=== PATIENT | male | born 1945 | race Caucasian/White ===

== ENCOUNTER 2022-06-01 17:07 | Emergency (ER) | payer OTHER, MEDICARE ==
--- NOTE | 2022-06-01 17:48 | XRAY ---
Indication: Acute mental status change. Multiple contiguous axial images obtained through the head without contrast. Comparison: None Age-appropriate global atrophy and mild periventricular degenerative micro-ischemia bilaterally. No acute intracranial hemorrhage, abnormal extra-axial fluid collection, or mass effect. Fourth ventricle is midline without hydrocephalus. Bony calvarium intact. Visualized paranasal sinuses and mastoid air cells are clear. Impression: Nonacute senile brain.
[2022-06-01 17:54] LABS: Absolute Neutrophil Ct (ANC) 5.97 x10^3/uL (1.4-6.9); BASOPHIL % 0.4 % (0.0-0.4); Basophil (Absolute #) 0.03 x10^3/uL (0-0.4); Eosinophil % 0.3 % (0.00-5.0); Eosinophil (Absolute #) 0.02 x10^3/uL (0-0.5); Hematocrit 43.7 % (42-50); IMMATURE GRAN # 0.02 x10^3u/L (0.00-0.03); IMMATURE GRAN % 0.3 % (0.00-0.4); Lymphocyte (Absolute #) 0.84 x10^3/uL (1.0-4.6); Lymphocytes % 11.5 % (24.0-44.0); Mean Cell Volume 94.6 fL (78-100); Mean Corpuscular Hemoglobin 30.3 pg (26-32); Mean Platelet Volume 9.8 fL (7.5-11.0); Monocyte (Absolute #) 0.42 x10^3/uL (0.0-1.3); Monocytes % 5.8 % (0.0-12.0); Neutrophil % 81.7 % (36.0-66.0); Platelet Count 191 x10^3/uL (150-450); Red Blood Count 4.62 x10^6/uL (4.1-5.6); Red Cell Distribution Width 13.2 % (11.5-14.0); White Blood Count 7.3 x10^3/uL (4.0-10.5)
[2022-06-01 18:11] LABS: ALKALINE PHOSPHATASE 66 U/L (38-126); ANION GAP 9.9 MEQ/L (5-15); BLOOD UREA NITROGEN 27 mg/dL (9-20); CHLORIDE 100 mmol/L (98-107); Calcium 8.9 mg/dL (8.4-10.2); Carbon Dioxide 26 mmol/L (22-30); Creatinine 1 1.01 mg/dL (0.66-1.25); EST GLOMERULAR FILTRATION RATE > 60.0 ML/MIN; Glucose 196 mg/dL (74-106); Potassium 3.5 mmol/L (3.5-5.1); SGOT/AST 23 U/L (17-59); SGPT/ALT 20 U/L (0-50); SODIUM 133 mmol/L (137-145); Total Protein 7.3 g/dL (6.3-8.2)
--- NOTE | 2022-06-01 18:49 | ERPHSYRPT ---
- History of Present Illness Time Seen by Provider: 06/01/22 17:50 Source: patient Exam Limitations: no limitations Patient Subjective Stated Complaint: C/O "spells" today. States, "I just keep feeling like I'm going to pass out." Patient denies any pain. He indicates that he had a "spell" while driving to [place] today. Patient would get hot and sweaty just prior to the "spells." Friend at bedside states patient had over 5 of these "spells" on the way home from [place] just prior to coming to the ER. Triage Nursing Assessment: Patient ambulated back to ER. No SOB. Patient alert and times but is repeating himself often. Patient unable to name entire medication list for nursing staff. Friend at bedside also states that this is unusual for patient, patient is usually able to ramble off his medication list without difficulties. Patient is having trouble finding what words he wants to speak at times. Speech is clear. Able to GALLAGHER WNL. Smile is symetrical. Physician History: Patient is a 76-year-old male diabetic, hyperlipidemia history of [place] with multiple cardiac stents. Presents to emergency department for evaluation of near syncopal episodes. Patient states "I feel like I am going to pass out". Patient states he was driving his vehicle today. Patient experienced near syncope approximately 5 times. No associated pain. No shortness of breath. No nausea vomiting or diaphoresis. Patient is a known diabetic. Patient was not hypoglycemic in our ED. Symptoms are mild to moderate in intensity. No specific worsening improving factors. Patient significant other is at bedside. They voiced no other complaints or concerns at this time. Portions of this note were created with voice recognition technology. There may be grammatical, spelling, punctuation or sound alike errors Timing/Duration: today Severity: moderate Associated Symptoms: denies symptoms, other (During the near syncopal episodes patient complains that he was experiencing hot flashes.) Allergies/Adverse Reactions: No Known Drug Allergies Allergy (Verified 06/01/22 17:09) Home Medications: Apixaban [Eliquis 5 mg Tablet] 5 mg PO BID 06/01/22 [History] Atorvastatin Calcium [Lipitor] 40 mg PO DAILY 06/01/22 [History] Duloxetine HCl 30 mg [Cymbalta 30 MG Capsule] 60 mg PO HS 06/01/22 [History] Losartan/Hydrochlorothiazide [Losartan-Hctz 100-25 mg Tab] 1 each PO DAILY [History] Metformin HCl 500 mg [Glucophage 500 MG] 1 tab PO BID 06/01/22 [History] Metoprolol Succinate 100 mg [Toprol Xl 100 MG] 100 mg PO DAILY 06/01/22 [History] NIFEdipine [Nifedipine ER] 30 mg PO HS 06/01/22 [History] Hx Tetanus, Diphtheria Vaccination/Date Given: Yes Hx Influenza Vaccination/Date Given: Yes Hx Pneumococcal Vaccination/Date Given: Yes Immunizations Up to Date: Yes Travel Risk - International Travel Have you traveled outside of the country in past 3 weeks: No - Coronavirus Screening Are you exhibiting any of the following symptoms?: No Close contact with a COVID-19 positive Pt in past 14-21 Days: No - Vaccine Status Have you recieved a Covid-19 vaccination: Yes Teletypesetter Operator: Unknown - Vaccination Dates Dates if Unknown: ? - Review of Systems Constitutional: No Symptoms, No Fever, No Chills Eyes: No Symptoms Ears, Nose, & Throat: No Symptoms Respiratory: No Symptoms, No Cough, No Dyspnea Cardiac: No Symptoms, No Chest Pain, No Edema, No Syncope Abdominal/Gastrointestinal: No Symptoms, No Abdominal Pain, No Nausea, No Vomiting, No Diarrhea Genitourinary Symptoms: No Symptoms, No Dysuria Musculoskeletal: No Symptoms, No Back Pain, No Neck Pain Skin: No Symptoms, No Rash Neurological: No Symptoms, No Dizziness, No Focal Weakness, No Sensory Changes Psychological: No Symptoms Endocrine: No Symptoms Hematologic/Lymphatic: No Symptoms Immunological/Allergic: No Symptoms All Other Systems: Reviewed and Negative - Past Medical History Pertinent Past Medical History: Yes Neurological History: No Pertinent History ENT History: No Pertinent History Cardiac History: Arrhythmia, High Cholesterol, Hypertension, Myocardial Infarction ([place]) Respiratory History: No Pertinent History Endocrine Medical History: Diabetes Type II Male Reproductive Disorders: Prostate Problems Other Medical History: A-fib - Past Surgical History Past Surgical History: Yes Cardiac: Cardiac Catheterization, Cardiac Stent Male Surgical History: Prostate Surgery Other Surgical History: eye implants - Social History Smoking Status: Former smoker Exposure to second hand smoke: No Drug Use: none Patient Lives Alone: No (Son) - Nursing Vital Signs Nursing Vital Signs: Initial Vital Signs Temperature 98 F 06/01/22 17:13 Pulse Rate 72 06/01/22 17:13 Respiratory Rate 20 06/01/22 17:13 Blood Pressure 121/74 06/01/22 17:13 O2 Sat by Pulse Oximetry 98 06/01/22 17:13 Pain Scale Pain Intensity 0 - Physical Exam General Appearance: no apparent distress, alert Eye Exam: PERRL/EOMI, eyes nml inspection Ears, Nose, Throat Exam: normal ENT inspection, TMs normal, pharynx normal, moist mucous membranes Neck Exam: normal inspection, non-tender, supple, full range of motion Respiratory Exam: normal breath sounds, lungs clear, No respiratory distress Cardiovascular Exam: regular rate/rhythm, normal heart sounds, normal peripheral pulses Gastrointestinal/Abdomen Exam: soft, normal bowel sounds, No tenderness, No mass Back Exam: normal inspection, normal range of motion, No CVA tenderness, No vertebral tenderness Extremity Exam: normal inspection, normal range of motion, pelvis stable Neurologic Exam: alert, oriented x 3, cooperative, normal mood/affect, nml cerebellar function, nml station & gait, sensation nml, No motor deficits Skin Exam: normal color, warm, dry, No rash Lymphatic Exam: No adenopathy SpO2: 95 - Course Nursing assessment & vital signs reviewed: Yes EKG Interpreted by Me: RATE (71), Sinus Rhythm, NORMAL AXIS, NORMAL INTERVALS - CT Exams Head CT Interpretation: Tele-radiologist Report (CT head reveals a nonacute senile brain) Other CT Interpretation: Tele-radiologist Report (CT angio neck reveals a 1 cm right thyroid lobe hypodense nodule/cyst, spine arthritis, lung granuloma, right internal carotid artery 50 to 60% stenosis. Left internal carotid artery 50% stenosis) Ordered Tests: Active Orders 24 hr Category Date Time Status Processing Lead STAT Care 06/01/22 17:33 Active EKG-ER Only STAT Care 06/01/22 17:32 Active IV Insertion STAT Care 06/01/22 17:32 Active POCT Glucose Check STAT Care 06/01/22 18:49 Active Pulse Oximetry (ED) STAT Care 06/01/22 17:[address] ANGIOGRAPHY NECK [CT] Stat Exams 06/01/22 19:08 Completed CTA HEAD W AND/OR WO CONTRAST [CT] Stat Exams 06/01/22 19:06 Completed HEAD WITHOUT CONTRAST [CT] Stat Exams 06/01/22 17:28 Completed CBC W DIFF Stat Lab 06/01/22 17:43 Completed CMP Stat Lab 06/01/22 17:43 Completed POCT GLUCOSE Stat Lab 06/01/22 17:19 Completed TROPONIN Q4H Lab 06/01/22 17:43 Completed TROPONIN Q4H Lab 06/01/22 21:54 Completed TROPONIN Q4H Lab 06/02/22 01:45 Ordered UA W/RFX UR CULTURE Stat Lab 06/01/22 17:33 Ordered Medication Summary Generic Name Dose Route Start Last Admin Trade Name Freq PRN Reason Stop Dose Admin Sodium Chloride 1,000 mls @ 75 mls/hr 06/01/22 22:15 06/01/22 22:23 Sodium Chloride 0.9% 1000 Ml IV 07/01/22 22:14 75 mls/hr .[id number] JOSE LUIS Administration Discontinued Medications Generic Name Dose Route Start Last Admin Trade Name Freq PRN Reason Stop Dose Admin Aspirin 324 mg 06/01/22 22:13 06/01/22 22:23 Aspirin 81 Mg Tab.Chew PO 06/01/22 22:14 324 mg STAT ONE Administration Aspirin Confirm 06/01/22 22:19 Aspirin 81 Mg Tab.Chew Administered 06/01/22 22:20 Dose 324 mg .ROUTE .STK-MED ONE Lab/Rad Data: Laboratory Result Diagrams 06/01/22 17:43 06/01/22 17:43 Laboratory Results 06/01/22 06/01/22 06/01/22 Range/Units Unknown 21:54 17:43 WBC (4.0-10.5) x10^3/uL RBC (4.1-5.6) x10^6/uL Hgb (12.5-18.0) g/dL Hct (42-50) % MCV (78-100) fL MCH (26-32) pg MCHC (32-36) g/dL RDW (11.5-14.0) % Plt Count (150-450) x10^3/uL MPV (7.5-11.0) fL Gran % (36.0-66.0) % Immature Gran % (Auto) (0.00-0.4) % Nucleat RBC Rel Count (0.00-0.1) % Eos # (Auto) (0-0.5) x10^3/uL Immature Gran # (Auto) (0.00-0.03) x10^3u/L Absolute Lymphs (auto) (1.0-4.6) x10^3/uL Absolute Monos (auto) (0.0-1.3) x10^3/uL Absolute Nucleated RBC (0.00-0.01) x10^3u/L Lymphocytes % (24.0-44.0) % Monocytes % (0.0-12.0) % Eosinophils % (0.00-5.0) % Basophils % (0.0-0.4) % Absolute Granulocytes (1.4-6.9) x10^3/uL Basophils # (0-0.4) x10^3/uL Sodium (137-145) mmol/L Potassium (3.5-5.1) mmol/L Chloride (98-107) mmol/L Carbon Dioxide (22-30) mmol/L Anion Gap (5-15) MEQ/L BUN (9-20) mg/dL Creatinine (0.66-1.25) mg/dL Estimated GFR ML/MIN Glucose (74-106) mg/dL POC Glucometer (74 to 106) mg/dL Calcium (8.4-10.2) mg/dL Total Bilirubin (0.2-1.3) mg/dL AST (17-59) U/L ALT (0-50) U/L Alkaline Phosphatase (38-126) U/L Troponin I < 0.012 < 0.012 (0.000-0.034) ng/mL Serum Total Protein (6.3-8.2) g/dL Albumin (3.5-5.0) g/dL Influenza Type A Ag NEGATIVE (NEGATIVE) Influenza Type B Ag NEGATIVE (NEGATIVE) RSV (PCR) NEGATIVE (Negative) SARS-CoV-2 (PCR) NEGATIVE (NEGATIVE) 06/01/22 06/01/22 06/01/22 Range/Units 17:43 17:43 17:19 WBC 7.3 (4.0-10.5) x10^3/uL RBC 4.62 (4.1-5.6) x10^6/uL Hgb 14.0 (12.5-18.0) g/dL Hct 43.7 (42-50) % MCV 94.6 (78-100) fL MCH 30.3 (26-32) pg MCHC 32.0 (32-36) g/dL RDW 13.2 (11.5-14.0) % Plt Count 191 (150-450) x10^3/uL MPV 9.8 (7.5-11.0) fL Gran % 81.7 H (36.0-66.0) % Immature Gran % (Auto) 0.3 (0.00-0.4) % Nucleat RBC Rel Count 0.0 (0.00-0.1) % Eos # (Auto) 0.02 (0-0.5) x10^3/uL Immature Gran # (Auto) 0.02 (0.00-0.03) x10^3u/L Absolute Lymphs (auto) 0.84 L (1.0-4.6) x10^3/uL Absolute Monos (auto) 0.42 (0.0-1.3) x10^3/uL Absolute Nucleated RBC 0.00 (0.00-0.01) x10^3u/L Lymphocytes % 11.5 L (24.0-44.0) % Monocytes % 5.8 (0.0-12.0) % Eosinophils % 0.3 (0.00-5.0) % Basophils % 0.4 (0.0-0.4) % Absolute Granulocytes 5.97 (1.4-6.9) x10^3/uL Basophils # 0.03 (0-0.4) x10^3/uL Sodium 133 L (137-145) mmol/L Potassium 3.5 (3.5-5.1) mmol/L Chloride 100 (98-107) mmol/L Carbon Dioxide 26 (22-30) mmol/L Anion Gap 9.9 (5-15) MEQ/L BUN 27 H (9-20) mg/dL Creatinine 1.01 (0.66-1.25) mg/dL Estimated GFR > 60.0 ML/MIN Glucose 196 H (74-106) mg/dL POC Glucometer 189 H (74 to 106) mg/dL Calcium 8.9 (8.4-10.2) mg/dL Total Bilirubin 0.60 (0.2-1.3) mg/dL AST 23 (17-59) U/L ALT 20 (0-50) U/L Alkaline Phosphatase 66 (38-126) U/L Troponin I (0.000-0.034) ng/mL Serum Total Protein 7.3 (6.3-8.2) g/dL Albumin 4.0 (3.5-5.0) g/dL Influenza Type A Ag (NEGATIVE) Influenza Type B Ag (NEGATIVE) RSV (PCR) (Negative) SARS-CoV-2 (PCR) (NEGATIVE) - Progress Progress: improved Progress Note: CT angio head reveals mild left and minimal right atherosclerotic calcifications parasellar internal carotid arteries without critical stenosis or obstruction. Remaining CTA head with contrast negative 06/02/22 00:[address] Beauchamp the hospitalist who accepts transfer. Transfer service will not be available until approximately 2 AM. 06/02/22 00:31 Patient 76-year-old male presents to emergency department for evaluation of recurrent near syncopal episodes and transient slurred speech. Physical exam/neurological exam within normal limits. Patient's complaints were acute in nature. Complexity of symptoms are moderate. No significant comorbidities to contribute to patient's current symptomology. Work-up entailed CT head, CT angio head and neck, CBC CMP COVID study [id number] glucose troponin urinalysis. The results of the studies were used for medical decision making. Patient symptoms are concerning for possible underlying neurologic manifestation. We consulted telemetry neuro. Telemetry neuro advised hospitalization. Medication administered was aspirin. Patient also received normal saline. We contacted the [facility]. They stated that they have beds available for transfer. Patient preferred transfer to the [facility]. Case discussed with hospitalist Dr. Beauchamp who accepts transfer. Transport will be available at approximately 2 AM. Patient not a candidate for tPA. Patient agrees to transfer to [facility] for further evaluation and treatment. Level of EM service provided was moderate. Complexity of problem addressed was moderate. Complexity of data reviewed and analyzed is moderate. Risk of complication and/or risk of morbidity/mortality of patient management is low. History of present illness was obtained from patient's significant other. Patient also contributed somewhat to HPI. Time spent for disposition was approximately 15 minutes. Portions of this note were created with voice recognition technology. There may be grammatical, spelling, punctuation or sound alike errors 06/02/22 00:39 06/02/22 00:[address] Tima Will see patient in: hospital (observation) Counseled pt/family regarding: lab results, diagnosis, rad results - Departure Departure Disposition: Observation Clinical Impression: Near syncope, Hyponatremia, Hyperglycemia, TIA (transient ischemic attack), Internal carotid artery stenosis, Lung granuloma, Thyroid nodule, Atheroscleroti c calcification Condition: Stable Critical Care Time: No Referrals: DOCTOR,NO FAMILY [Primary Care Provider] - Follow up/PCP as directed
[2022-06-01 19:51] LABS: INFLUENZA A NEGATIVE (NEGATIVE); INFLUENZA B NEGATIVE (NEGATIVE); RESPIRATORY SYNCTIAL VIRUS NEGATIVE (Negative); SARS-CoV-2 Xpert Express NEGATIVE (NEGATIVE)
--- NOTE | 2022-06-01 20:32 | XRAY ---
Indication: Acute mental status change. Stroke. Conventional contrast enhanced CTA neck performed using 100 cc Isovue 370 contrast. 2-D sagittal and coronal reformatted images obtained. Additional 3-D reformatted images obtained using a separate workstation. Comparison: None Visualized aortic arch minimally arteriosclerotic with normal branch right brachiocephalic, left common carotid, and left subclavian arteries. Minimal arteriosclerotic origin left common carotid and left subclavian arteries. Examination of the right carotid circulation demonstrates widely patent common carotid artery. Carotid bulb demonstrates minimal eccentric calcified plaquing. Origin internal carotid artery demonstrates calcified plaquing producing 50-60% stenosis. External carotid artery normal in CTA appearance. Examination of the left carotid circulation demonstrates widely patent common carotid artery. Minimal eccentric calcification carotid bulb. This slightly extends into the origin of the internal carotid artery producing less than 50% stenosis. External carotid artery normal in CTA appearance. Vertebral arteries are normal in course and caliber with the right slightly larger in caliber. Parotid and submandibular glands are bilaterally symmetric. No pathologic cervical/submandibular lymphadenopathy. Incidental 1 cm right thyroid lobe hypodense nodule/cyst. Supra and infraglottic airway widely patent. Normal epiglottis. Osseous structures demonstrate osteopenia and moderate/advanced C3-C7 degenerative changes. Lung apices demonstrates small left midlung calcified granuloma and mild bilateral dependent atelectasis. Impression: 1. Minimal right carotid bulb arteriosclerotic calcifications. Moderate calcifications origin right internal carotid artery producing 50-60% stenosis. 2. Minimal left carotid bulb calcifications. Mild calcifications origin left internal carotid artery producing less than 50% stenosis. 3. Normal CTA vertebral arteries with dominant right vertebral artery. 4. Incidental once ammeter right thyroid hypodense nodule/cyst, osteopenia, mild/moderate C3-C7 degenerative changes, and left lung calcified granuloma.
--- NOTE | 2022-06-01 20:36 | XRAY ---
Indication: Acute mental status change. Stroke. Conventional contrast enhanced CTA head performed using 100 cc Isovue 370 contrast. 2-D sagittal and coronal reformatted images obtained. Additional 3-D reformatted images obtained using a separate workstation. Comparison: None Distal internal carotid arteries are bilaterally symmetric. Parasellar segments demonstrates mild left and minimal right scattered arteriosclerotic calcifications without critical stenosis/obstruction. Normal carotid terminus with normal branching A1 and M1 segments bilaterally. More distal anterior cerebral and middle cerebral arteries are normal in CTA appearance bilaterally. No more anterior communicating and left posterior communicating arteries. Posterior circulation demonstrates tortuous distal vertebral arteries bilaterally without critical stenosis/obstruction. Normal CTA appearance to the remaining basilar, left/right posterior cerebral, and left/right superior cerebellar arteries. Venous sinuses/drainage unremarkable. Remaining brain is negative for abnormal enhancing intra-or extra-axial mass. Impression: Mild left and minimal right arteriosclerotic calcifications parasellar internal carotid arteries without critical stenosis/obstruction. Remaining CTA head with contrast exam is negative.
[2022-06-01] MEDS ORDERED: BABY ASPIRIN 81 MG CHEW PO ONE (22:13)
[2022-06-01] MEDS ORDERED: Sodium Chloride 0.9% 1000 ML 1,000 ML IV SCH (22:15)
[2022-06-01] MEDS ORDERED: BABY ASPIRIN 81 MG CHEW ONE (22:19)
[2022-06-02 02:15] VITALS: BP 118/80
[2022-06-02 02:18] VITALS: O2SAT 95
[2022-06-02 02:23] VITALS: PULSE 74
== END 2022-06-02 02:18 | disposition short-term general hospital (02) ==
LOC: ED 17:07
DX: G45.9 Transient cerebral ischemic attack, unspecified (principal); R55 Syncope and collapse; E87.1 Hypo-osmolality and hyponatremia; E11.65 Type 2 diabetes mellitus with hyperglycemia; J84.10 Pulmonary fibrosis, unspecified; E04.1 Nontoxic single thyroid nodule; I70.90 Unspecified atherosclerosis; E78.5 Hyperlipidemia, unspecified; I10 Essential (primary) hypertension; Z79.01 Long term (current) use of anticoagulants; Z79.84 Long term (current) use of oral hypoglycemic drugs; Z79.899 Other long term (current) drug therapy; Z20.828 Contact with and (suspected) exposure to other viral communicable diseases
CPT/HCPCS: 0241U; 36000; 36415; 70450; 70496; 70498; 80053; 82947; 84484; 85025; 93005; 93041; 94760; 99285; A9270-GY